=== PATIENT | female | born 1950 | race African-American/Black ===

== ENCOUNTER 2018-05-19 17:13 | Emergency (ER) | payer OTHER ==
--- NOTE | 2018-05-19 17:25 | PDOC ---
Rapid Medical Evaluation Time Seen by Provider: 05/19/18 17:23 Medical Evaluation: Allergies Allergy/AdvReac Type Severity Reaction Status Date / Time codeine Allergy Intermediate Vomiting Verified 05/19/18 17:23 05/19/18 17:23 I have performed a brief in-person evaluation of this patient. The patient presents with a chief complaint of: right hip pain Pertinent physical exam findings: tenderness over right trochanter. No c-spine tenderness I have ordered the following: xray, CTH, CT c-spine The patient will proceed to the ED for further evaluation. 05/19/18 17:25 Discharge Disposition - Diagnosis Hip pain - Referrals - Patient Instructions - Post Discharge Activity
[2018-05-19] MEDS ORDERED: ACETAMINOPHEN 500 MG TABLET (FP) PO ONE (17:26)
[2018-05-19 17:28] VITALS: BP 148/93; PULSE 98; TEMP 98.2; BMI 31.3
[2018-05-19] MEDS ORDERED: ACETAMINOPHEN 325 MG TABLET (FP) ONE (17:28)
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
== END 2018-05-19 20:12 | disposition home or self-care (01) ==
LOC: JERFT 17:13
DX: S09.8XXA Other specified injuries of head, initial encounter (principal); S50.02XA Contusion of left elbow, initial encounter; S70.01XA Contusion of right hip, initial encounter; V78.6XXA Passenger on bus injured in noncollision transport accident in traffic accident, initial encounter; Y93.89 Activity, other specified; Y92.414 Local residential or business street as the place of occurrence of the external cause; Y99.8 Other external cause status; I10 Essential (primary) hypertension; Z21 Asymptomatic human immunodeficiency virus [HIV] infection status
CPT/HCPCS: 70450-TC; 72125-TC; 73070-TC-LT-FY; 73523-TC-FY; 99281-25

== ENCOUNTER 2021-04-20 04:16 | Day surgery (SDC) | payer OTHER ==
[2021-04-18 15:07] VITALS: BMI 31.4
[2021-04-20] MEDS ORDERED: MIDAZOLAM HCL 2 MG/2 ML SINGLE DOSE VIAL ONE ×2 (11:46→14:45)
[2021-04-20] MEDS ORDERED: LIDOCAINE HCL/PF 2% SDV 5ML VIAL ONE (11:47)
[2021-04-20] MEDS ORDERED: SUCCINYLCHOLINE CHLORIDE 200 MG/10 ML SYRINGE ONE (11:47)
[2021-04-20] MEDS ORDERED: PROPOFOL 20 ML ONE ×4 (11:47→14:45)
[2021-04-20] MEDS ORDERED: LIDOCAINE HCL 1%, 10 MG/ML (20ML VIAL) NR ONE ×2 (12:58→15:02)
[2021-04-20] MEDS ORDERED: BUPIVACAINE HCL/PF 0.5% (5MG/ML) 10 ML VIAL IJ ONE ×3 (12:59→16:06)
[2021-04-20] MEDS ORDERED: ceFAZolin SODIUM 1 GM VIAL ONE (14:57)
[2021-04-20] MEDS ORDERED: ceFAZolin 2 GRAM PREMIX BAG IVPB ONE (15:00)
[2021-04-20 16:38] VITALS: TEMP 97.2
[2021-04-20 17:44] VITALS: BP 135/84; PULSE 78
== END 2021-04-20 17:50 | disposition home or self-care (01) ==
LOC: JASU-SURG 04:16
PROVIDERS: ATTEND Podiatrist Foot Surgery
PROC: 0SNN0ZZ Release Left Metatarsal-Phalangeal Joint, Open Approach (ICD-10-PCS; 2021-04-20)
PROC: 0SRQ0JZ Replacement of Left Toe Phalangeal Joint with Synthetic Substitute, Open Approach (ICD-10-PCS; principal; 2021-04-20 13:00)
DX: M20.42 Other hammer toe(s) (acquired), left foot (principal)
CPT/HCPCS: 73630-TC-LT; 88304-TC; 88311-TC

== ENCOUNTER 2022-01-19 23:16 | Emergency (ER) | payer OTHER ==
[2022-01-19 23:28] VITALS: BP 138/84; PULSE 90; RESP 18; TEMP 97.9; BMI 27.6
[2022-01-20 01:08] LABS: EPI CELLS >36 /uL (0-25.1); HYALINE CASTS 2 /uL (0-3.1); PH,URINE 6.5 (5.0-8.0); URINE APPEARANCE CLOUDY; URINE BACTERIA 833 /uL (0-1359); URINE BILIRUBIN NEGATIVE (NEGATIVE); URINE COLOR YELLOW; URINE GLUCOSE (UA) NEGATIVE (NEGATIVE); URINE KETONE TRACE (NEGATIVE); URINE LEUK ESTERASE NEGATIVE (NEGATIVE); URINE NITRITE NEGATIVE (NEGATIVE); URINE PROTEIN 1+ (NEGATIVE); URINE UROBILINOGEN 0.2 mg/dL (0.2-1.0); URINE WBC 44 /uL (0-25.8)
[2022-01-20] MEDS ORDERED: CEPHALEXIN MONOHYDRATE 500 MG CAPSULE (UD) PO ONE (01:30)
[2022-01-20] MEDS ORDERED: CEPHALEXIN MONOHYDRATE 500 MG CAPSULE (UD) ONE (02:54)
[2022-01-20 07:37] LABS: URINE RBC 18.5 /uL (0-23.9)
[2022-01-20 07:38] LABS: URINE CRYSTALS MANY /hpf
== END 2022-01-20 03:20 | disposition home or self-care (01) ==
LOC: JER 23:16
DX: N39.0 Urinary tract infection, site not specified (principal); R32 Unspecified urinary incontinence; D25.9 Leiomyoma of uterus, unspecified
CPT/HCPCS: 76830-TC; 81003; 87086; 99284-25

== ENCOUNTER 2022-10-04 06:06 | Inpatient (IN) | payer OTHER ==
[2022-08-30 10:46] VITALS: BMI 27.5
[~2022-10-04 06:06] MED LIST: CEFAZOLIN 1 GM in DEXTROSE 5%-WATER - 50 ML IVPB ONE; CEFAZOLIN 2 GM in DEXTROSE 5%-WATER - 100 ML IVPB ONE; TRANEXAMIC ACID 1000 MG/10 ML VIAL IVPUSH ONE
[2022-10-04] MEDS ORDERED: VANCOMYCIN 1,000 MG VIAL (RESTRICTED TO ID ONLY) ONE ×2 (07:03→08:35)
[2022-10-04] MEDS ORDERED: MIDAZOLAM HCL 2 MG/2 ML SINGLE DOSE VIAL ONE ×3 (07:28→09:41)
[2022-10-04] MEDS ORDERED: CEFAZOLIN 1 GM in DEXTROSE 5%-WATER - 50 ML IVPB ONE (07:30)
[2022-10-04] MEDS ORDERED: BUPIVACAINE HCL/PF 0.5% (5 MG/ML) 30 ML VIAL IJ ONE (07:36)
[2022-10-04] MEDS ORDERED: DEXAMETHASONE SOD PHOSPHATE/PF 10 MG/ML SDV ONE (07:36)
[2022-10-04] MEDS ORDERED: BUPIVACAINE HCL/PF 0.5% (5MG/ML) 10 ML VIAL ONE (08:16)
[2022-10-04] MEDS ORDERED: DEXAMETHASONE SOD PHOSPHATE 4 MG/1 ML VIAL ONE (08:35)
[2022-10-04] MEDS ORDERED: ceFAZolin SODIUM 1 GM VIAL ONE (08:35)
[2022-10-04] MEDS ORDERED: ONDANSETRON 4 MG/2 ML VIAL ONE (08:35)
[2022-10-04] MEDS ORDERED: BUPIVICAINE 0.25%/MORPH PF/KETOROLAC - 51ML DISP.SYRINGE IA ONE ×2 (09:51→10:18)
[2022-10-04] MEDS ORDERED: VANCOMYCIN 1,000 MG VIAL (RESTRICTED TO ID ONLY) IVPB ONE (10:08)
[2022-10-04] MEDS ORDERED: ONDANSETRON 4 MG/2 ML VIAL IVPUSH PRN ×2 (11:13)
[2022-10-04] MEDS ORDERED: MAG HYDROX/AL HYDROX/SIMETH 30 ML UNIT-DOSE CUP PO PRN (11:13)
[2022-10-04] MEDS ORDERED: MAGNESIUM HYDROX 2400MG/30ML ORAL SUSPENSION 30 ML CUP PO PRN (11:13)
[2022-10-04] MEDS ORDERED: LACTATED RINGERS SOLUTION 1,000 ML IV SCH (11:15)
[2022-10-04] MEDS: ACETAMINOPHEN 1000 MG/100 ML BAG IVPB ONE (11:24)
[2022-10-04] MEDS: oxyCODONE HCL 5 MG TABLET PO PRN ×3 (13:08→22:48)
[2022-10-04] MEDS: LACTATED RINGERS SOLUTION 1,000 ML IV SCH ×3 (18:13→21:07)
[2022-10-04] MEDS: ACETAMINOPHEN 500 MG TABLET (FP) PO SCH ×2 (18:34→22:48)
[2022-10-04] MEDS: ASCORBIC ACID 500 MG TABLET (FP) PO SCH (21:08)
[2022-10-04] MEDS: ASPIRIN 81 MG CHEWABLE TABLETS PO SCH (21:08)
[2022-10-04] MEDS: ATORVASTATIN CA 20 MG TABLET (FP) PO SCH (21:08)
[2022-10-04] MEDS: SENNOSIDES/DOCUSATE COMBO (SENNA PLUS) TABLET (UD) PO SCH (21:10)
[2022-10-04] MEDS: GABAPENTIN 300 MG CAPSULE PO SCH (21:12)
[2022-10-04] MEDS ORDERED: oxyCODONE HCL 10 MG SUSTAINED ACTING TABLET PO SCH (22:00)
[2022-10-04] MEDS: CEFAZOLIN SODIUM 2 GM in DEXTROSE 5%-WATER 100 ML IVPB SCH (22:46)
[2022-10-05] MEDS: CEFAZOLIN SODIUM 2 GM in DEXTROSE 5%-WATER 100 ML IVPB SCH (01:34)
[2022-10-05] MEDS: ACETAMINOPHEN 1000 MG/100 ML BAG IVPB ONE (01:34)
[2022-10-05] MEDS: ACETAMINOPHEN 500 MG TABLET (FP) PO SCH ×4 (06:36→22:48)
[2022-10-05] MEDS: oxyCODONE HCL 5 MG TABLET PO PRN ×3 (06:37→21:28)
[2022-10-05 09:24] LABS: HEMATOCRIT 29.2 % (32.4-45.2); HEMOGLOBIN 9.8 G/dL (10.7-15.3); MCH 32.7 pg (25.7-33.7); MCHC 33.7 g/dl (32.0-36.0); MEAN PLT VOLUME 10.4 fl (7.5-11.1); PLATELET COUNT 181.8 10^3/uL (134-434); RBC 3.01 10^6/uL (3.60-5.2); RDW 14.1 % (11.6-15.6); WHITE BLOOD COUNT 10.9 10^3/uL (4.0-10.8)
[2022-10-05] MEDS: PANTOPRAZOLE 40 MG TABLET PO SCH (09:32)
[2022-10-05] MEDS: CELECOXIB 200 MG CAPSULE PO SCH (09:32)
[2022-10-05] MEDS: SENNOSIDES/DOCUSATE COMBO (SENNA PLUS) TABLET (UD) PO SCH ×2 (09:33→21:28)
[2022-10-05] MEDS: ASPIRIN 81 MG CHEWABLE TABLETS PO SCH ×2 (09:33→21:28)
[2022-10-05] MEDS: CHLORTHALIDONE 25 MG TABLET PO SCH (09:34)
[2022-10-05] MEDS: GABAPENTIN 300 MG CAPSULE PO SCH ×3 (09:34→21:33)
[2022-10-05] MEDS: MULTIVITAMINS (DAILY MVI) TABLET (FP) PO SCH (09:35)
[2022-10-05] MEDS: ASCORBIC ACID 500 MG TABLET (FP) PO SCH ×2 (09:35→21:28)
[2022-10-05] MEDS: EMTRICITAB/RILPIVIRI/TENOF ALA (ODEFSEY) TABLET PO SCH (09:36)
[2022-10-05 09:45] LABS: BLOOD UREA NITROGEN 11.1 mg/dl (7-18); CALCIUM 8.6 mg/dl (8.5-10.1); CREATININE 0.7 mg/dl (0.6-1.3); POTASSIUM 3.3 mmol/L (3.5-5.1)
[2022-10-05] MEDS ORDERED: POTASSIUM CHLORIDE ORAL LIQUID 20 MEQ/15 ML PO ONE (11:02)
[2022-10-05] MEDS: LACTATED RINGERS SOLUTION 1,000 ML IV SCH (15:53)
[2022-10-05] MEDS: ATORVASTATIN CA 20 MG TABLET (FP) PO SCH (21:28)
[2022-10-06] MEDS: oxyCODONE HCL 5 MG TABLET PO PRN ×2 (06:38→10:39)
[2022-10-06] MEDS: ACETAMINOPHEN 500 MG TABLET (FP) PO SCH ×4 (06:39→23:15)
[2022-10-06 08:22] LABS: HEMATOCRIT 27.4 % (32.4-45.2); HEMOGLOBIN 8.9 G/dL (10.7-15.3); MCH 31.6 pg (25.7-33.7); MCHC 32.6 g/dl (32.0-36.0); MEAN CELL VOLUME 97.1 fl (80-96); MEAN PLT VOLUME 10.4 fl (7.5-11.1); PLATELET COUNT 177.7 10^3/uL (134-434); RBC 2.82 10^6/uL (3.60-5.2); WHITE BLOOD COUNT 8.3 10^3/uL (4.0-10.8)
[2022-10-06 09:28] LABS: BLOOD UREA NITROGEN 10.7 mg/dl (7-18); CALCIUM 8.6 mg/dl (8.5-10.1); CREATININE 0.6 mg/dl (0.6-1.3); POTASSIUM 3.5 mmol/L (3.5-5.1)
[2022-10-06] MEDS: ASPIRIN 81 MG CHEWABLE TABLETS PO SCH ×2 (10:38→21:50)
[2022-10-06] MEDS: CELECOXIB 200 MG CAPSULE PO SCH (10:38)
[2022-10-06] MEDS: CHLORTHALIDONE 25 MG TABLET PO SCH (10:38)
[2022-10-06] MEDS: GABAPENTIN 300 MG CAPSULE PO SCH ×3 (10:39→21:51)
[2022-10-06] MEDS: PANTOPRAZOLE 40 MG TABLET PO SCH (10:39)
[2022-10-06] MEDS: MULTIVITAMINS (DAILY MVI) TABLET (FP) PO SCH (10:39)
[2022-10-06] MEDS: ASCORBIC ACID 500 MG TABLET (FP) PO SCH ×2 (10:39→21:51)
[2022-10-06] MEDS: SENNOSIDES/DOCUSATE COMBO (SENNA PLUS) TABLET (UD) PO SCH ×2 (10:39→21:51)
[2022-10-06] MEDS: EMTRICITAB/RILPIVIRI/TENOF ALA (ODEFSEY) TABLET PO SCH (11:11)
[2022-10-06] MEDS: ATORVASTATIN CA 20 MG TABLET (FP) PO SCH (21:51)
[2022-10-07] MEDS: ACETAMINOPHEN 500 MG TABLET (FP) PO SCH ×2 (06:42→11:31)
[2022-10-07] MEDS ORDERED: REFRIGERATED ANITBIOTICS ONE (08:25)
[2022-10-07 09:20] VITALS: RESP 18
[2022-10-07] MEDS: ASCORBIC ACID 500 MG TABLET (FP) PO SCH (09:32)
[2022-10-07] MEDS: SENNOSIDES/DOCUSATE COMBO (SENNA PLUS) TABLET (UD) PO SCH ×2 (09:33→09:41)
[2022-10-07] MEDS: CHLORTHALIDONE 25 MG TABLET PO SCH ×2 (09:33→09:41)
[2022-10-07] MEDS: PANTOPRAZOLE 40 MG TABLET PO SCH (09:33)
[2022-10-07] MEDS: GABAPENTIN 300 MG CAPSULE PO SCH ×2 (09:33→09:41)
[2022-10-07] MEDS: ASPIRIN 81 MG CHEWABLE TABLETS PO SCH (09:33)
[2022-10-07] MEDS: CELECOXIB 200 MG CAPSULE PO SCH (09:33)
[2022-10-07] MEDS: MULTIVITAMINS (DAILY MVI) TABLET (FP) PO SCH (09:33)
[2022-10-07] MEDS: EMTRICITAB/RILPIVIRI/TENOF ALA (ODEFSEY) TABLET PO SCH (09:41)
[2022-10-07 12:27] VITALS: BP 127/66; PULSE 84; TEMP 98.3
== END 2022-10-07 12:22 | disposition home or self-care (01) | DRG 470 ==
LOC: FASUSAT 06:06 → FM/S 11:16
PROVIDERS: ADMIT Orthopaedic Surgery Sports Medicine; ATTEND Orthopaedic Surgery Sports Medicine
PROC: 0SR904A Replacement of Right Hip Joint with Ceramic on Polyethylene Synthetic Substitute, Uncemented, Open Approach (ICD-10-PCS; principal; 2022-10-04 08:57)
DX: M16.11 Unilateral primary osteoarthritis, right hip (principal)
CPT/HCPCS: 36415; 73502-TC-RT-FY; 80048; 85027; 88305-TC; 88311-TC; 94760; 97116-GP; 97161-GP; C1713; C1776; C1889